=== PATIENT | female | born 1995 | race Caucasian/White ===

== ENCOUNTER → 2021-11-12 | Outpatient (CLI) | payer BC ==
[2021-11-12 18:12] LABS: Basophils # (A) 0.04 X 10*3/uL (0.00-0.10); Basophils % (A) 0.5 %; Eosinophils # (A) 0.15 X 10*3/uL (0.04-0.35); HCT 42.7 % (37.2-46.3); HGB 13.8 g/dL (12.0-15.0); Immature Grans, Automated 0.1 %; Lymphocytes # (A) 2.49 X 10*3/uL (0.90-5.00); Lymphocytes % (A) 33.7 %; MCH 29.1 pg (27.0-32.0); MCHC 32.3 g/dL (32.0-37.0); MCV 90.1 fL (80.0-97.0); Mean Platelet Volume 10.8 fL (9.5-12.2); Monocytes # (A) 0.52 X 10*3/uL (0.20-1.00); NRBC Per 100 WBC 0 /100 WBCS (0.0-0.0); Neutrophils # (A) 4.17 X 10*3/uL (1.80-7.70); Neutrophils % (A) 56.7 %; Platelet Count 313 X 10*3/uL (140-440); RBC 4.74 X 10*6/uL (4.10-5.20); RDW 12.4 % (11.5-14.5); WBC 7.38 X 10*3/uL (4.50-10.00)
[2021-11-12 18:24] LABS: Erythrocyte Sedimentation Rate 15 mm/Hr (0-20)
[2021-11-12 20:35] LABS: % Iron Saturation 29.33 (12.00-45.00); ALT 22 U/L (8-44); AST 18 U/L (13-35); African American GFR (CKD) 103.7 (60.0-200.0); Albumin 4.5 g/dL (3.8-4.9); Albumin/Globulin Ratio 1.67 (1.60-3.17); Alkaline Phosphatase 84 U/L (41-126); BUN/Creat Ratio 10.11 Ratio (12.00-20.00); Blood Urea Nitrogen 9.1 mg/dL (9.0-27.0); Calcium 9.8 mg/dL (8.7-10.3); Carbon Dioxide 22.8 mmol/L (20.0-27.5); Chloride 101 mmol/L (96-109); Chol/HDL Ratio 3.85 Ratio; Ferritin 98.8 ng/mL (10.0-291.0); Globulin 2.7 g/dL (1.6-3.3); Glucose 99 mg/dL (70-110); Iron 96 ug/dL (50-170); LDL Cholesterol,Calculated 103.2 mg/dL (0.0-131.0); Non-African American GFR(CKD) 89.5 (60.0-200.0); Potassium 4.7 mmol/L (3.5-5.5); Sodium 139 mmol/L (135-145); Total Iron Binding Capacity 328 ug/dL (228-460); Total Protein 7.2 g/dL (6.2-8.2)
[2021-11-12 20:54] LABS: Thyroid Peroxidase Antibodies <9.0 U/mL (0.0-33.0)
== END | disposition home or self-care (01) ==
LOC: LABWHC1 10:08
PROVIDERS: ATTEND Nurse Practitioner Family
DX: Z13.220 Encounter for screening for lipoid disorders (principal); R53.83 Other fatigue; R63.5 Abnormal weight gain
CPT/HCPCS: 36415; 80053; 80061; 82306; 82607; 82626; 82728; 82746; 83036; 83525; 83540; 83550; 84403; 84439; 84443; 85025; 85652; 86376; 86800